=== PATIENT | female | born 1970 | race African-American/Black ===

== ENCOUNTER 2017-08-14 10:10 | Day surgery (SDC) | payer OTHER ==
[2017-08-13 11:32] VITALS: BMI 35.0
[2017-08-14] MEDS ORDERED: MIDAZOLAM HCL 2 MG/2 ML SINGLE DOSE VIAL ONE ×6 (12:02→13:49)
[2017-08-14] MEDS ORDERED: DEXAMETHASONE SOD PHOSPHATE 4 MG/1 ML VIAL ONE ×2 (12:32→13:13)
[2017-08-14] MEDS ORDERED: BUPIVACAINE HCL/PF 0.5% (5MG/ML) 10 ML VIAL ONE (12:32)
[2017-08-14] MEDS ORDERED: ceFAZolin SODIUM 1 GM VIAL IVPB ONE (13:16)
[2017-08-14] MEDS ORDERED: ceFAZolin SODIUM 1 GM VIAL ONE (13:32)
[2017-08-14] MEDS ORDERED: ONDANSETRON 4 MG/2 ML VIAL IVPUSH PRN (14:32)
[2017-08-14] MEDS ORDERED: PROMETHAZINE HCL 25 MG/1 ML VIAL IVPUSH PRN (14:32)
[2017-08-14] MEDS ORDERED: LACTATED RINGERS SOLUTION 1,000 ML IV SCH (14:45)
[2017-08-14 15:04] VITALS: TEMP 98
[2017-08-14 17:26] VITALS: BP 130/70; PULSE 76
--- NOTE | 2017-08-18 18:06 | PATH ---
Surgical Pathology Report Patient Name: JAYJAY LEVINE [facility]. Rec. #: [id number] /Age/Gender: 1970 (Age: 47) / F Account: [id number] Location: [facility] SURGICAL Taken: 08/14/2017 Received: 08/15/2017 Reported: 08/18/2017 Physicians: Ivone Vazquez DPM Specimen(s) Received BONE FOOT BONE Clinical History Right foot bunion Right foot bunion and second hammertoe correction via cutting of skin and soft tissue and bone Final Diagnosis FOOT, BONE, RIGHT, EXCISION: BONE WITH DEGENERATIVE CHANGES. Electronically Signed Annamarie Aldana M.D. Gross Description Received in formalin labelled "right foot bone" is a 2.5 x 2.5 x 0.6 cm aggregate of portions of bone. 2 pieces a dome-shaped and are grossly consistent with bunion. One piece has attached articular cartilage and is consistent with a metatarsal head from a hammertoe correction. The bone of the cut surfaces is firm and uniform. [employer] sections are submitted in one cassette for decalcification. [facility]/08/15/2017 [facility]/08/15/2017
--- NOTE | 2017-08-19 11:00 | OP ---
DATE OF OPERATION: 08/14/2017 PREOPERATIVE DIAGNOSES: Painful right foot bunion and painful right foot 2nd digit hammertoe. SURGEON: Ivone Vazquez DPM and Martin Neil DPM ASSISTANTS: Cleo David, PGY-2 ANESTHESIA: Local with IV sedation. OPERATIONS: Right foot great toe bunionectomy and right foot 2nd digit arthroplasty. PATHOLOGY: Right foot bone and soft tissue. HEMOSTASIS: Right ankle tourniquet at 250 mmHg and electrocautery. ESTIMATED BLOOD LOSS: Less than 3 mL. MATERIALS USED: 2-0 and 3-0 Vicryl sutures and 4-0 nylon suture. INJECTABLES: 22 mL of 1:1 mixture of 1% lidocaine plain and 0.5% Marcaine plain used preoperatively and 10 mL of 8:2 mixture of 0.5% Marcaine plain and 40 mg dexamethasone used postoperatively. CONDITION OF THE PATIENT: Stable. FINDING AND PROCEDURES: The patient was brought to the operating room and placed on the operating table in the supine position. After IV sedation was initiated, exactly 22 mL of 1:1 mixture of 1% lidocaine plain and 0.5% Marcaine plain were infiltrated throughout the surgical site to the dorsal and plantar aspect of the 1st metatarsophalangeal joint and 2nd digit, right foot. Then, the right foot was scrubbed, prepped, and draped in the usual aseptic fashion. Upon exsanguination of the right foot with an Esmarch bandage and placement of padding at the ankle, the pneumatic ankle tourniquet was inflated to 250 mmHg. Surgery began in the following manner. Attention was first directed to the dorsal aspect of the right foot 1st metatarsophalangeal joint where a linear incision was made medial and parallel to the tendon of the extensor hallucis longus using a number-15 blade. The incision was then deepened through the subcutaneous tissue using sharp and blunt dissection. Care was taken to identify all vital neurovascular structures. All bleeders were then ligated and cauterized as necessary. At this time, a linear capsulotomy was then performed over the dorsal aspect of the 1st metatarsophalangeal joint. The periosteal and capsular structures were then carefully dissected medially and laterally exposing the head of the 1st metatarsal. Attention was then directed to eh medial aspect of the 1st metatarsal head using a sagittal saw. The medial prominence was then resected and removed from the operative field and sent to pathology. Also, using a sagittal saw, the dorsal osteophytes were resected and removed from the operative field. At this time, the 1st metatarsophalangeal joint range of motion was assessed, and great range of motion was noted at the 1st MPJ. The wound was then irrigated with copious amount of normal saline. The periosteal and capsular structures were then reapproximated using a 2-0 Vicryl suture, and subcutaneous tissues were then closed with 4-0 Vicryl sutures. Skin edges were then coapted utilizing a 4-0 nylon suture. Attention was then brought to the right foot 2nd digit where a semielliptical incision was made on the dorsal aspect of the proximal interphalangeal joint, and the dorsal skin wedge was removed and sent to Pathology. The extensor tendon was then tenotomized and capsulotomy performed to release the head of the proximal phalanx. All bleeders were then cauterized and ligated as necessary. The right foot 2nd toe proximal phalanx head was then partially resected using a sagittal saw, and the bone was removed from the operative field and sent to Pathology. Incision site was irrigated with copious amounts of normal saline and dried. The extensor tendon was then sutured using a 3-0 Vicryl suture, and the skin closed using a 4-0 nylon suture in a simple suture fashion. Upon completion of the procedure, a total of 10 mL of 8:2 mixture of 0.5% Marcaine plain and 40 mg dexamethasone was infiltrated throughout the surgical site. The incision was then dressed with Betadine-soaked Adaptic and dry sterile gauze and 4 x 4 gauze and Chidi as well as a bandage. The tourniquet was then deflated, and immediate hyperemia returned to all the digits of the right foot. Patient tolerated the procedure and anesthesia well and was transferred to the recovery room with all vitals stable and vascular status intact to the right foot. Following postoperative monitoring, the patient was discharged and was already given instructions and prescription which were discussed prior to the surgery. Cleo David, PGY-2 dictating for JAYLYN Villareal DPM BS/[id number] WILBER
== END 2017-08-14 15:45 | disposition home or self-care (01) ==
LOC: JASU-SURG 10:10
PROVIDERS: ATTEND Podiatrist Foot Surgery
PROC: 0QSN0ZZ Reposition Right Metatarsal, Open Approach (ICD-10-PCS; 2017-08-14)
PROC: 0SRP0JZ Replacement of Right Toe Phalangeal Joint with Synthetic Substitute, Open Approach (ICD-10-PCS; principal; 2017-08-14 11:30)
DX: M21.611 Bunion of right foot (principal); M20.41 Other hammer toe(s) (acquired), right foot
CPT/HCPCS: 73630-TC-RT; 84703; 88304-TC; 88311-TC; 94760; 97116-GP

== ENCOUNTER 2017-09-05 09:54 | Day surgery (SDC) | payer OTHER ==
[2017-09-03 11:45] VITALS: BMI 35.0
[2017-09-05] MEDS ORDERED: MIDAZOLAM HCL 2 MG/2 ML SINGLE DOSE VIAL ONE ×5 (12:22→13:40)
[2017-09-05] MEDS ORDERED: PROPOFOL 20 ML ONE (13:04)
[2017-09-05] MEDS ORDERED: ceFAZolin SODIUM 1 GM VIAL ONE (13:04)
[2017-09-05] MEDS ORDERED: KETOROLAC TROMETHAMINE 30 MG/1 ML VIAL ONE (13:04)
[2017-09-05] MEDS ORDERED: DEXAMETHASONE SOD PHOSPHATE 4 MG/1 ML VIAL ONE (13:04)
[2017-09-05] MEDS ORDERED: ceFAZolin SODIUM 1 GM VIAL IVPB ONE (13:05)
[2017-09-05] MEDS ORDERED: BACITRACIN 50,000 UNITS VIAL NR ONE (13:30)
[2017-09-05] MEDS ORDERED: LIDOCAINE HCL 1%, 10 MG/ML (20ML VIAL) ONE (13:32)
[2017-09-05] MEDS ORDERED: DEXAMETHASONE 4 MG TABLET (FP) NR ONE (13:45)
[2017-09-05] MEDS ORDERED: BUPIVACAINE HCL/PF 0.5% (5MG/ML) 10 ML VIAL IJ ONE (13:45)
[2017-09-05] MEDS ORDERED: LIDOCAINE HCL 1%, 10 MG/ML (20ML VIAL) PNB ONE (13:45)
[2017-09-05] MEDS ORDERED: BUPIVACAINE HCL/PF 0.5% (5MG/ML) 10 ML VIAL ONE (13:56)
[2017-09-05] MEDS ORDERED: PROMETHAZINE HCL 25 MG/1 ML VIAL IVPUSH PRN (14:12)
[2017-09-05] MEDS ORDERED: ONDANSETRON 4 MG/2 ML VIAL IVPUSH PRN (14:12)
[2017-09-05] MEDS ORDERED: oxyCODONE HCL 5 MG TABLET PO PRN (14:12)
[2017-09-05] MEDS ORDERED: LACTATED RINGERS SOLUTION 1,000 ML IV SCH (14:15)
[2017-09-05 15:39] VITALS: TEMP 97.9
[2017-09-05 17:09] VITALS: BP 137/76; PULSE 70
--- NOTE | 2017-09-08 20:50 | OP ---
DATE OF OPERATION: 09/05/2017 SURGEON: Ivone Vazquez DPM RFID ANALYST: Martin Neil DPM and Fausto Bills, PGY-3 PREOPERATIVE DIAGNOSES: 1. Bunion deformity, left foot. 2. Hammertoe deformity, 2nd digit, left foot. POSTOPERATIVE DIAGNOSES: 1. Bunion deformity, left foot. 2. Hammertoe deformity, 2nd digit, left foot. PROCEDURE: 1. Left foot cheilectomy. 2. Arthroplasty of proximal interphalangeal joint, 2nd digit, left foot. ANESTHESIA: IV with MAC. HEMOSTASIS: Pneumatic left ankle tourniquet at 250 mmHg. ESTIMATED BLOOD LOSS: Less than 5 mL. MATERIAL: All non-dyed 2-0 Vicryl, 3-0 Vicryl, 4-0 Monocryl, and 4-0 nylon. INJECTION: Preoperative injection of 15 mL of 1:1 mix of 1% lidocaine plain and 0.5% Marcaine plain. Postoperative injection 2 mL of dexamethasone 4 g/mL and 8 mL of 0.5% Marcaine plain mix. COMPLICATIONS: None. CONDITION: Stable. DESCRIPTION OF PROCEDURE: The patient was brought to the operating room and placed supine on the operating room table. One gram of Ancef was then administered intravenously for prophylaxis. After that, local IV sedation was obtained. A local block was then administered to the left foot utilizing a 1:1 mix of 1% lidocaine plain and 0.5% Marcaine plain. A total of 15 mL was used. The left foot was then prepped and draped in the usual aseptic fashion. Upon exsanguination of the left foot with an Esmarch bandage and placement of padding at the ankle, pneumatic ankle tourniquet was inflated to 250 mmHg. Attention was directed to the left 1st metatarsophalangeal joint where a linear longitudinal incision was made extending from the neck of the 1st metatarsal to the base of the proximal phalanx of the hallux. Care was taken throughout the dissection to avoid damage to neurovascular or tendinous structures. The incision was deepened via sharp dissection to the level of the capsule. The capsule was incised in T-type fashion, and capsular structures were reflected. Using a periosteal elevator, the periosteum of the head of the 1st metatarsal was also reflected. Utilizing sharp instrument, a release of the contracture of the lateral structure of the 1st MPJ and base of the proximal phalanx of the hallux was then performed in standard fashion. Attention was directed back to the medial 1st metatarsal head where the medial prominence of the metatarsal head was resected using a sagittal saw. All remaining prominence on the 1st metatarsal head was made smooth by use of bur at this time. At this time, surgical site was irrigated with copious amount of normal saline solution. Next, 2-0 Vicryl was used to close the capsule with a medial capsulorrhaphy, 3-0 Vicryl was used to reapproximate subcutaneous layers, and 4-0 Monocryl was used to reapproximate the skin in subcuticular-suture technique. Attention was now directed to the left 2nd digit where an incision was placed in the dorsal aspect of the digit. The incision was carried to the level of the proximal interphalangeal joint. The extensor tendon was also transected, and the head of the proximal phalanx was resected with an oscillating saw. The surgical site was then flushed with copious amount of normal saline solution with antibiotic. The extensor tendon was then repaired with 3-0 Vicryl, and 4-0 nylon was used to close the skin in simple-suture manner. This was noted to give a great reduction of the left 2nd digit hammertoe deformity. At this time, tincture of benzoin was applied near the incision site of the 1st metatarsal, and Steri-Strips were applied. Next, 2 mL of dexamethasone 4 g/mL and 8 mL of 0.5% Marcaine plain mix were injected near the surgical site as postoperative injection. The incisions were then dressed with Betadine-soaked Adaptic, sterile compressive dressing consisting of 4 x 4's, Chidi, and Alex bandage. The pneumatic ankle tourniquet was deflated, and prompt hyperemic response was noted to all digits of the left foot. The patient tolerated the procedure and anesthesia well and left the operating room to the recovery room in good condition with vital signs stable and neurovascular status intact. Capillary filling time was less than 3 seconds to all digits of the left foot. JAYLYN Villareal/[id number]
== END 2017-09-05 17:14 | disposition home or self-care (01) ==
LOC: JASU-SURG 09:54
PROVIDERS: ATTEND Podiatrist Foot Surgery
PROC: 0QBR0ZZ Excision of Left Toe Phalanx, Open Approach (ICD-10-PCS; principal; 2017-09-05 11:30)
DX: M21.612 Bunion of left foot (principal); M20.42 Other hammer toe(s) (acquired), left foot
CPT/HCPCS: 73630-TC-LT; 84703; 94760